=== PATIENT | female | born 1935 | race Caucasian/White ===

== ENCOUNTER 2017-11-02 18:11 | Inpatient (IN) | payer MEDICARE, OTHER ==
[2017-11-02] MEDS ORDERED: Sodium Chloride 0.9% 10 ML Syringe FLUSH PRN (18:51)
--- NOTE | 2017-11-02 18:55 | EDM.PDOC ---
ED HPI GENERAL MEDICAL PROBLEM - General Chief Complaint: General Stated Complaint: FEVER,LOW OXYGEN,BP ELEVATED Time Seen by Provider: 11/02/17 18:35 Source of Information: Reports: Patient, Family (daughter) History Limitations: Reports: No Limitations - History of Present Illness INITIAL COMMENTS - FREE TEXT/NARRATIVE: 82-year-old female presents with her daughter for evaluation and treatment of fever, cough, increased confusion and weakness. Reports that she had a temperature of 101.5 at [facility]. Reports that symptoms started today. Per her daughter states that she is not acting like herself. She reports a dry, nonproductive cough, weakness and confusion. No chest pain, shortness of breath , nausea, vomiting or diarrhea. Patient's oxygen sats were lower in the low 80s upon arrival to the ER, nursing staff placed her on oxygen. Not normally on oxygen. No influenza vaccine this season. Primary care provider is Dr. Melgoza. Daughter reports that she did have flu in August. She describes more of a gastroenteritis rather than influenza. - Related Data Allergies Allergy/AdvReac Type Severity Reaction Status Date / Time No Known Allergies Allergy Verified 11/02/17 18:26 Home Meds: Home Meds Clopidogrel [Plavix] 75 mg PO DAILY 11/02/17 [History] Donepezil [Aricept] 10 mg PO BEDTIME 11/02/17 [History] Ranitidine HCl [Zantac] 150 mg PO DAILY 11/02/17 [History] Solifenacin Succinate [Vesicare] 10 mg PO DAILY 11/02/17 [History] Social & Family History - Tobacco Use Smoking Status *Q: Never Smoker Second Hand Smoke Exposure: No - Caffeine Use Caffeine Use: Reports: Coffee - Recreational Drug Use Recreational Drug Use: No ED ROS GENERAL - Review of Systems Review Of Systems: See Below Constitutional: Reports: Fever (101.[address]), Weakness Respiratory: Denies: Shortness of Breath Cardiovascular: Denies: Chest Pain GI/Abdominal: Denies: Abdominal Pain, Nausea, Vomiting Neurological: Reports: Confusion ED EXAM, GENERAL - Physical Exam Exam: See Below Exam Limited By: No Limitations General Appearance: Alert, WD/WN, No Apparent Distress Eye Exam: Bilateral Eye: Normal Inspection Ears: Normal External Exam Ear Exam: Bilateral Ear: Other (TMs obscured by cerumen) Nose: Normal Inspection Throat/Mouth: Normal Inspection Neck: Normal Inspection Respiratory/Chest: No Respiratory Distress, Lungs Clear, Normal Breath Sounds Cardiovascular: Normal Peripheral Pulses, Regular Rate, Rhythm, No Murmur GI/Abdominal: Soft, Non-Tender Neurological: Alert, Confused Psychiatric: Normal Affect, Normal Mood Skin Exam: Warm, Dry, Normal Color EKG INTERPRETATION EKG Date: 11/02/17 Time: 20:55 Rate (Beats/Min): 90 EKG Interpretation Comments: sinus arrhythmia. unifocal PVCs. No obvious ischemia. Reviewed by myself and Dr. Portillo. Course - Vital Signs Last Recorded V/S: Last Vital Signs Temp 38.3 C H 11/02/17 21:21 Pulse 74 11/02/17 21:21 Resp 23 H 11/02/17 21:21 BP 142/87 H 11/02/17 18:21 Pulse Ox 92 L 11/02/17 21:21 - Orders/Labs/Meds Orders: Active Orders 24 hr Category Date Time Status Admission Status [Patient Status] [ADT] Routine ADT 11/02/17 22:30 Active Cardiac Monitoring [RC] . DIRECTED Care 11/02/17 18:51 Active EKG 12 Lead [EKG Documentation Completion] [RC] STAT Care 11/02/17 20:41 Active Oxygen Therapy [RC] ASDIRECTED Care 11/02/17 18:51 Active Peripheral IV Care [RC] . DIRECTED Care 11/02/17 18:52 Active Chest 2V [CR] Stat Exams 11/02/17 18:51 Taken CULTURE BLOOD [BC] Stat Lab 11/02/17 19:10 Received CULTURE BLOOD [BC] Stat Lab 11/02/17 19:18 Received CULTURE URINE [RM] Stat Lab 11/02/17 19:31 Received Sodium Chloride 0.9% [Normal Saline] 1,000 ml Med 11/02/17 19:58 Active IV ONETIME Sodium Chloride 0.9% [Saline Flush] Med 11/02/17 18:51 Active 10 ml FLUSH ASDIRECTED PRN Blood Culture x2 Reflex Set [OM.PC] Stat Oth 11/02/17 18:52 Ordered Peripheral IV Insertion Adult [OM.PC] Routine Oth 11/02/17 18:51 Ordered Medication Orders Sodium Chloride (Normal Saline) 1,000 mls @ 125 mls/hr IV ONETIME ONE Stop: 11/03/17 03:57 Last Admin: 11/02/17 20:21 Dose: 125 mls/hr Sodium Chloride (Saline Flush) 10 ml FLUSH ASDIRECTED PRN PRN Reason: Keep Vein Open Last Admin: 11/02/17 19:43 Dose: 10 ml Labs: Laboratory Tests 11/02/17 11/02/17 11/02/17 Range/Units 19:10 19:10 19:10 WBC 12.74 H (3.98-10.04) K/mm3 RBC 4.06 (3.98-5.22) M/mm3 Hgb 12.5 (11.2-15.7) gm/L Hct 38.6 (34.1-44.9) % MCV 95.1 H (79.4-94.8) fl MCH 30.8 (25.6-32.2) pg MCHC 32.4 (32.2-35.5) g/dl RDW Std Deviation 50.3 H (36.4-46.3) fL Plt Count 349 (182-369) K/mm3 MPV 11.3 (9.4-12.3) fl Neutrophils % (Manual) 82 H (40-60) % Band Neutrophils % 1 (0-10) % Lymphocytes % (Manual) 12 L (20-40) % Atypical Lymphs % 0 % Monocytes % (Manual) 5 (2-10) % Eosinophils % (Manual) 0 L (0.7-5.8) % Basophils % (Manual) 0 L (0.1-1.2) Platelet Estimate Adequate RBC Morph Comment Normal Sodium 136 (136-145) mEq/L Potassium 4.1 (3.5-5.1) mEq/L Chloride 101 (98-107) mEq/L Carbon Dioxide 25 (21-32) mEq/L Anion Gap 14.1 (5-15) BUN 17 (7-18) mg/dL Creatinine 1.3 H (0.55-1.02) mg/dL Est Cr Clr Drug Dosing 32.50 mL/min Estimated GFR (MDRD) 39 (>60) mL/min BUN/Creatinine Ratio 13.1 L (14-18) Glucose 117 H (83-115) mg/dL Lactic Acid 1.1 (0.4-2.0) mmol/L Calcium 8.2 L (8.5-10.1) mg/dL Total Bilirubin 0.6 (0.2-1.0) mg/dL AST 18 (15-37) U/L ALT 12 L (14-59) U/L Alkaline Phosphatase 73 (46-116) U/L C-Reactive Protein 5.1 H* (<1.0) mg/dL Total Protein 7.0 (6.4-8.2) g/dl Albumin 3.2 L (3.4-5.0) g/dl Globulin 3.8 gm/dL Albumin/Globulin Ratio 0.8 L (1-2) Urine Color (Yellow) Urine Appearance (Clear) Urine pH (5.0-8.0) Ur Specific [place] (1.005-1.030) Urine Protein (Negative) Urine Glucose (UA) (Negative) Urine Ketones (Negative) Urine Occult Blood (Negative) Urine Nitrite (Negative) Urine Bilirubin (Negative) Urine Urobilinogen (0.2-1.0) Ur Leukocyte Esterase (Negative) Urine RBC (0-5) /hpf Urine WBC (0-5) /hpf Ur Epithelial Cells (0-5) /hpf Urine Bacteria (FEW) /hpf Urine Mucus (FEW) /hpf 11/02/17 Range/Units 19:31 WBC (3.98-10.04) K/mm3 RBC (3.98-5.22) M/mm3 Hgb (11.2-15.7) gm/L Hct (34.1-44.9) % MCV (79.4-94.8) fl MCH (25.6-32.2) pg MCHC (32.2-35.5) g/dl RDW Std Deviation (36.4-46.3) fL Plt Count (182-369) K/mm3 MPV (9.4-12.3) fl Neutrophils % (Manual) (40-60) % Band Neutrophils % (0-10) % Lymphocytes % (Manual) (20-40) % Atypical Lymphs % % Monocytes % (Manual) (2-10) % Eosinophils % (Manual) (0.7-5.8) % Basophils % (Manual) (0.1-1.2) Platelet Estimate RBC Morph Comment Sodium (136-145) mEq/L Potassium (3.5-5.1) mEq/L Chloride (98-107) mEq/L Carbon Dioxide (21-32) mEq/L Anion Gap (5-15) BUN (7-18) mg/dL Creatinine (0.55-1.02) mg/dL Est Cr Clr Drug Dosing mL/min Estimated GFR (MDRD) (>60) mL/min BUN/Creatinine Ratio (14-18) Glucose (83-115) mg/dL Lactic Acid (0.4-2.0) mmol/L Calcium (8.5-10.1) mg/dL Total Bilirubin (0.2-1.0) mg/dL AST (15-37) U/L ALT (14-59) U/L Alkaline Phosphatase (46-116) U/L C-Reactive Protein (<1.0) mg/dL Total Protein (6.4-8.2) g/dl Albumin (3.4-5.0) g/dl Globulin gm/dL Albumin/Globulin Ratio (1-2) Urine Color Light yellow (Yellow) Urine Appearance Cloudy H (Clear) Urine pH 6.5 (5.0-8.0) Ur Specific [place] 1.020 (1.005-1.030) Urine Protein 1+ H (Negative) Urine Glucose (UA) Negative (Negative) Urine Ketones Negative (Negative) Urine Occult Blood Negative (Negative) Urine Nitrite Positive H (Negative) Urine Bilirubin Negative (Negative) Urine Urobilinogen 0.2 (0.2-1.0) Ur Leukocyte Esterase 3+ H (Negative) Urine RBC 0-5 (0-5) /hpf Urine WBC 50-75 H (0-5) /hpf Ur Epithelial Cells 5-10 H (0-5) /hpf Urine Bacteria Many H (FEW) /hpf Urine Mucus Not seen (FEW) /hpf Meds: Medications Generic Name Dose Route Start Last Admin Trade Name Freq PRN Reason Stop Dose Admin Sodium Chloride 1,000 mls @ 125 mls/hr 11/02/17 19:58 11/02/17 20:21 Normal Saline IV 11/03/17 03:57 125 mls/hr ONETIME ONE Administration Sodium Chloride 10 ml 11/02/17 18:51 11/02/17 19:43 Saline Flush FLUSH 10 ml ASDIRECTED PRN Administration Keep Vein Open Discontinued Medications Generic Name Dose Route Start Last Admin Trade Name Freq PRN Reason Stop Dose Admin Levofloxacin/Dextrose 750 mg/ 150 mls @ 100 mls/hr 11/02/17 20:00 11/02/17 20 :21 Premix IV 11/02/17 21:29 100 mls/hr ONETIME ONE Administration - Radiology Interpretation Free Text/Narrative:: chest xray reviewed by myself and Dr. Sanon, early pneumonia right middle lobe - Re-Assessments/Exams Free Text/Narrative Re-Assessment/Exam: 11/02/17 20:00 Labs are returning. Concern for pneumonia and urinary tract infection. Blood cultures have been obtained. Will start IV Levaquin to cover for urinary tract infection and pneumonia. 11/02/17 20:45 I Feel the patient needs to be admitted for her hypoxia, pneumonia and urinary tract infection. I checked on the patient, discussed this with the patient and her daughter. They are agreeable with this. I appreciated that she seemed to have an irregular rhythm. EKG ordered. She was in normal sinus rhythm upon arrival. No history of A. fib. 11/02/17 21:10 Influenza returned negative. Case discussed with Dr. Mendez, hospitalist on-call. Agrees to the admission. Departure - Departure Time of Disposition: 21:15 Disposition: Admitted As Inpatient 64 Condition: Poor Clinical Impression: UTI, Urinary tract infectious disease, Pneumonia, Hypoxia - Discharge Information Referrals: Gucci Mir MD [Primary Care Provider] - Forms: ED Department Discharge Additional Instructions: Patient admitted to [facility] [place] with telemetry under Dr. Mendez for urinary tract infection, pneumonia and hypoxia. - My Orders Last 24 Hours: My Active Orders 11/02/17 18:51 Cardiac Monitoring [RC] . DIRECTED Oxygen Therapy [RC] ASDIRECTED Chest 2V [CR] Stat Sodium Chloride 0.9% [Saline Flush] 10 ml FLUSH ASDIRECTED PRN Peripheral IV Insertion Adult [OM.PC] Routine 11/02/17 18:52 Peripheral IV Care [RC] . DIRECTED Blood Culture x2 Reflex Set [OM.PC] Stat 11/02/17 19:10 CULTURE BLOOD [BC] Stat 11/02/17 19:18 CULTURE BLOOD [BC] Stat 11/02/17 19:31 CULTURE URINE [RM] Stat 11/02/17 19:58 Sodium Chloride 0.9% [Normal Saline] 1,000 ml IV ONETIME 11/02/17 20:41 EKG 12 Lead [EKG Documentation Completion] [RC] STAT 11/02/17 22:30 Admission Status [Patient Status] [ADT] Routine - Assessment/Plan Last 24 Hours: My Active Orders 11/02/17 18:51 Cardiac Monitoring [RC] . DIRECTED Oxygen Therapy [RC] ASDIRECTED Chest 2V [CR] Stat Sodium Chloride 0.9% [Saline Flush] 10 ml FLUSH ASDIRECTED PRN Peripheral IV Insertion Adult [OM.PC] Routine 11/02/17 18:52 Peripheral IV Care [RC] . DIRECTED Blood Culture x2 Reflex Set [OM.PC] Stat 11/02/17 19:10 CULTURE BLOOD [BC] Stat 11/02/17 19:18 CULTURE BLOOD [BC] Stat 11/02/17 19:31 CULTURE URINE [RM] Stat 11/02/17 19:58 Sodium Chloride 0.9% [Normal Saline] 1,000 ml IV ONETIME 11/02/17 20:41 EKG 12 Lead [EKG Documentation Completion] [RC] STAT 11/02/17 22:30 Admission Status [Patient Status] [ADT] Routine
[2017-11-02] MEDS ORDERED: Sodium Chloride 0.9% 1,000 ML IV ONE (19:58)
[2017-11-02] MEDS ORDERED: Levofloxacin/Dextrose 5%-Water 750 MG in Premix Bag 1 BAG IV ONE (20:00)
[2017-11-02] MEDS ORDERED: Acetaminophen/HYDROcodone 325-5 MG Tab PO PRN (22:41)
[2017-11-02] MEDS ORDERED: HYDROmorphone 0.5 MG/0.5 ML SYRINGE IVPUSH PRN (22:41)
[2017-11-02] MEDS ORDERED: Acetaminophen 325 MG Tab PO PRN (22:41)
[2017-11-02] MEDS ORDERED: Promethazine 6.25 MG in Sodium Chloride 0.9% 50 ML IV PRN (22:41)
[2017-11-02] MEDS ORDERED: Bisacodyl 5 MG Tab PO PRN (22:41)
[2017-11-02] MEDS ORDERED: LORazepam 2 MG/ML MDV IV PRN (22:41)
[2017-11-02] MEDS ORDERED: Albuterol/Ipratropium 3.0-0.5 MG/3 ML Neb Soln NEB PRN (22:41)
[2017-11-02] MEDS ORDERED: Polyethylene Glycol 3350 Powder 17 GM Packet PO PRN (22:41)
[2017-11-02] MEDS ORDERED: Temazepam 7.5 MG Cap PO PRN (22:41)
[2017-11-02] MEDS ORDERED: Ondansetron 4 MG/2 ML SDV IV PRN (22:41)
[2017-11-02] MEDS ORDERED: Docusate Sodium 100 MG Cap PO PRN (22:41)
[2017-11-02] MEDS ORDERED: Metoprolol Tartrate 5 MG/5 ML SDV IVPUSH PRN (22:46)
[2017-11-02] MEDS ORDERED: hydrALAZINE 20 MG/ML SDV IVPUSH PRN (22:46)
[2017-11-02] MEDS ORDERED: LORazepam 2 MG/ML MDV IVPUSH PRN (22:46)
[2017-11-02] MEDS ORDERED: guaiFENesin/Dextromethorphan 100-10 MG/5 ML Soln 5 ML Cup PO PRN (23:59)
--- NOTE | 2017-11-03 00:05 | PCM.HP ---
H&P History of Present Illness - General Date of Service: 11/02/17 Admit Problem/Dx: UTI and PNA Source of Information: Patient, Family, Old Records, Provider, RN Notes Reviewed History Limitations: Reports: Other (Memory Impairment) - History of Present Illness Initial Comments - Free Text/Narative: This is an 82 yo elderly white female with past medical hx/o ? CAD on Plavix, Early Dementia, GERD/Pyrosis, and OAB on Vesicare who comes in to ED for evaluation of subjective fever of 101.5 associated with dry non-productive cough , generalized weakness and increased confusion. She denies any chest pain or shortness of breath. No report of GI issues. Patient carries a hx/o recent influenza illness back in August. She received anti-viral treatment and her symptoms improved immediately. On presentation to ED she was found sating in the low 80s. Her initial work up shows a CBC remarkable for WBC of 12.74, MCV of 95.1, RDW of 15.2%, neutrophils of 82%, and 12% of lymphocytes. Her chemistry is remarkable for creatinine of 1.3, glucose of 117, calcium of 8.2, ALT of 12, CRP of 5.1, and albumin of 3.2. UA is highly suggestive of urinary tract infection; positive for nitrite, 3+ leukocyte esterase, and many urine bacteria. Chest x-ray shows right middle lobe infiltrate. Patient is being admitted for medical treatment of right middle lobe pneumonia and urinary tract infection. She is full code for now. - Related Data Allergies/Adverse Reactions: Allergies Allergy/AdvReac Type Severity Reaction Status Date / Time No Known Allergies Allergy Verified 11/03/17 02:25 Home Medications: Home Meds Clopidogrel [Plavix] 75 mg PO DAILY 11/02/17 [History] Donepezil [Aricept] 10 mg PO BEDTIME 11/02/17 [History] Ranitidine HCl [Zantac] 150 mg PO DAILY 11/02/17 [History] Solifenacin Succinate [Vesicare] 10 mg PO DAILY 11/02/17 [History] Social & Family History - Tobacco Use Smoking Status *Q: Never Smoker Second Hand Smoke Exposure: No - Caffeine Use Caffeine Use: Reports: Coffee - Recreational Drug Use Recreational Drug Use: No H&P Review of Systems - Review of Systems: Review Of Systems: See Below General: Reports: Fever, Weakness. Denies: Chills, Malaise, Fatigue HEENT: Reports: No Symptoms. Denies: Sore Throat Pulmonary: Reports: Shortness of Breath. Denies: Pleuritic Chest Pain, Cough Cardiovascular: Denies: Chest Pain Gastrointestinal: Denies: Abdominal Pain, Nausea, Vomiting Genitourinary: Reports: No Symptoms Skin: Reports: No Symptoms Psychiatric: Reports: Confusion (but with underlying dementia; not good with short term memory per daughter). Denies: Depression, Anxiety, Hallucinations Neurological: Denies: Confusion, Difficulty Walking, Weakness, Gait Disturbance Hematologic/Lymphatic: Reports: No Symptoms Immunologic: Reports: No Symptoms Exam - Exam Exam: See Below - Vital Signs Vital Signs: Last Vital Signs Temp 38.2 C H 11/02/17 23:28 Pulse 66 11/02/17 22:00 Resp 32 H 11/02/17 22:00 BP 119/74 11/02/17 21:32 Pulse Ox 98 11/02/17 22:00 Weight: 81.647 kg - Exam General: Alert, Cooperative. No: Mild Distress HEENT: Conjunctiva Clear, EACs Clear, EOMI, Hearing Intact, Nares Patent, Normal Nasal Septum, Pupils Equal, Pupils Reactive, Other (very dry mouth and tongue). No: Mucosa Moist & Pierre, Posterior Pharynx Clear Neck: Supple, Trachea Midline Lungs: Clear to Auscultation, Normal Respiratory Effort Cardiovascular: Regular Rate, Regular Rhythm GI/Abdominal Exam: Normal Bowel Sounds, Soft, Non-Tender, No Organomegaly, No Distention, No Abnormal Bruit (Female) Exam: Deferred Rectal (Female) Exam: Deferred Back Exam: Normal Inspection, Decreased Range of Motion Extremities: Normal Inspection, Normal Range of Motion, Non-Tender, No Pedal Edema, Normal Capillary Refill Peripheral Pulses: 2+: Dorsalis Pedis (L), Dorsalis Pedis (R) Skin: Warm, Dry, Intact Neuro Extensive - Mental Status: Oriented x3, Normal Cognition, Memory Intact Neuro Extensive - Motor, Sensory, Reflexes: CN II-XII Intact, Normal Gait Psychiatric: Alert, Normal Affect, Normal Mood - Patient Data Result Diagrams: 11/03/17 06:00 11/03/17 06:00 *Q Meaningful Use (ADM) - VTE *Q VTE Criteria *Q: - Stroke *Q Stroke Criteria *Q: - AMI *Q AMI Criteria *Q: Problem List Initiated/Reviewed/Updated: Yes Orders Last 24hrs: Active Orders 24 hr Category Date Time Status Height and Weight [RC] DAILY Care 11/02/17 22:41 Active Intake and Output [RC] QSHIFT Care 11/02/17 22:41 Active Oxygen Therapy [RC] PRN Care 11/02/17 22:41 Active RT Aerosol Therapy [RC] ASDIRECTED Care 11/02/17 22:43 Active Up With Assistance [RC] ASDIRECTED Care 11/02/17 22:41 Active Up ad Edith [RC] ASDIRECTED Care 11/02/17 22:41 Active VTE/DVT Education [RC] PER UNIT ROUTINE Care 11/02/17 22:41 Active Vital Signs [RC] Q4H Care 11/02/17 22:41 Active Consult to Case Management [CONS] Routine Cons 11/02/17 22:44 Active Consult to Delicatessen Department Manager [CONS] Routine Cons 11/02/17 22:44 Active Consult to Spiritual Care [CONS] Routine Cons 11/02/17 22:44 Active OT Evaluation and Treatment [CONS] Routine Cons 11/02/17 22:44 Active PT Evaluation and Treatment [CONS] Routine Cons 11/02/17 22:44 Active Respiratory Care Assess and Treatment [CONS] Routine Cons 11/02/17 22:44 Active Regular Diet [DIET] Diet 11/03/17 Breakfast Active BASIC METABOLIC PANEL,BMP [CHEM] AM Lab 11/03/17 05:11 Ordered BASIC METABOLIC PANEL,BMP [CHEM] AM Lab 11/04/17 05:11 Ordered BASIC METABOLIC PANEL,BMP [CHEM] AM Lab 11/05/17 05:11 Ordered BASIC METABOLIC PANEL,BMP [CHEM] AM Lab 11/06/17 05:11 Ordered BASIC METABOLIC PANEL,BMP [CHEM] AM Lab 11/07/17 05:11 Ordered C-REACTIVE PROTEIN [CHEM] AM Lab 11/03/17 05:11 Ordered C-REACTIVE PROTEIN [CHEM] AM Lab 11/04/17 05:11 Ordered C-REACTIVE PROTEIN [CHEM] AM Lab 11/05/17 05:11 Ordered C-REACTIVE PROTEIN [CHEM] AM Lab 11/06/17 05:11 Ordered C-REACTIVE PROTEIN [CHEM] AM Lab 11/07/17 05:11 Ordered CBC WITH AUTO DIFF [HEME] AM Lab 11/03/17 05:11 Ordered CBC WITH AUTO DIFF [HEME] AM Lab 11/04/17 05:11 Ordered CBC WITH AUTO DIFF [HEME] AM Lab 11/05/17 05:11 Ordered CBC WITH AUTO DIFF [HEME] AM Lab 11/06/17 05:11 Ordered CBC WITH AUTO DIFF [HEME] AM Lab 11/07/17 05:11 Ordered MAGNESIUM [CHEM] AM Lab 11/03/17 05:11 Ordered MAGNESIUM [CHEM] AM Lab 11/04/17 05:11 Ordered MAGNESIUM [CHEM] AM Lab 11/05/17 05:11 Ordered MAGNESIUM [CHEM] AM Lab 11/06/17 05:11 Ordered MAGNESIUM [CHEM] AM Lab 11/07/17 05:11 Ordered Acetaminophen [Tylenol] Med 11/02/17 22:41 Active 650 mg PO Q4H PRN Acetaminophen/HYDROcodone [[place] 325-5 MG] Med 11/02/17 22:41 Active 1 tab PO Q4H PRN Albuterol/Ipratropium [DuoNeb 3.0-0.5 MG/3 ML] Med 11/02/17 22:41 Active 3 ml NEB Q4H PRN Azithromycin [Zithromax] 500 mg Med 11/03/17 09:00 Active Sodium Chloride 0.9% [Normal Saline] 250 ml IV Q24H Bisacodyl [Dulcolax] Med 11/02/17 22:41 Active 5 mg PO DAILY PRN Clopidogrel [Plavix] Med 11/03/17 09:00 Active 75 mg PO DAILY Docusate Sodium [Colace] Med 11/02/17 22:41 Active 100 mg PO BID PRN Docusate Sodium/Sennosides [Senna Plus] Med 11/02/17 22:41 Active 1 tab PO BID PRN Donepezil [Aricept] Med 11/03/17 21:00 Active 10 mg PO BEDTIME Famotidine [Pepcid] Med 11/03/17 21:00 Active 20 mg PO BEDTIME HYDROmorphone [Dilaudid] Med 11/02/17 22:41 Active 0.25 mg IVPUSH Q2H PRN LORazepam [Ativan] Med 11/02/17 22:41 Active 0.25 mg IV Q6H PRN LORazepam [Ativan] Med 11/02/17 22:46 Active 2 mg IVPUSH Q4H PRN Magnesium Rep Pharmacy to Dose [Pharmacy to Dose - Med 11/02/17 23:00 Pending Magnesium Replacement] 1 dose .XX ASDIRECTED Metoprolol Tartrate [Lopressor] Med 11/02/17 22:46 Active 5 mg IVPUSH Q4H PRN Ondansetron [Zofran] Med 11/02/17 22:41 Active 4 mg IV Q6H PRN Polyethylene Glycol 3350 [MiraLAX] Med 11/02/17 22:41 Active 17 gm PO DAILY PRN Potassium Rep Pharmacy to Dose [Pharmacy to Dose - Med 11/02/17 23:00 Pending Potassium Replacement] 1 dose .XX ASDIRECTED Promethazine [Phenergan] 6.25 mg Med 11/02/17 22:41 Active Sodium Chloride 0.9% [Normal Saline] 50 ml IV Q6H Saccharomyces Boulardii [Florastor] Med 11/03/17 09:00 Active 500 mg PO DAILY Temazepam [Restoril] Med 11/02/17 22:41 Active 7.5 mg PO BEDTIME PRN Trospium [Sanctura] Med 11/03/17 06:00 Active 20 mg PO BIDAC cefTRIAXone [Rocephin] 1 gm Med 11/03/17 09:00 Active Sodium Chloride 0.9% [Normal Saline] 100 ml IV Q24H hydrALAZINE [Apresoline] Med 11/02/17 22:46 Active 10 mg IVPUSH Q4H PRN Medication Orders Acetaminophen (Tylenol) 650 mg PO Q4H PRN PRN Reason: Pain (Mild 1-3)/fever Last Admin: 11/02/17 23:28 Dose: 650 mg Hydrocodone Bitart/Acetaminophen ([place] 325-5 Mg) 1 tab PO Q4H PRN PRN Reason: Pain (moderate 4-6) Albuterol/Ipratropium (Duoneb 3.0-0.5 Mg/3 Ml) 3 ml NEB Q4H PRN PRN Reason: Shortness Of Breath/wheezing Bisacodyl (Dulcolax) 5 mg PO DAILY PRN PRN Reason: Constipation Clopidogrel Bisulfate (Plavix) 75 mg PO DAILY SONAM Docusate Sodium (Colace) 100 mg PO BID PRN PRN Reason: Constipation Donepezil HCl (Aricept) 10 mg PO BEDTIME SONAM Famotidine (Pepcid) 20 mg PO BEDTIME SONAM Hydralazine HCl (Apresoline) 10 mg IVPUSH Q4H PRN PRN Reason: Hypertension Hydromorphone HCl (Dilaudid) 0.25 mg IVPUSH Q2H PRN PRN Reason: Pain (severe 7-10) Sodium Chloride (Normal Saline) 1,000 mls @ 125 mls/hr IV ONETIME ONE Stop: 11/03/17 03:57 Last Admin: 11/02/17 20:21 Dose: 125 mls/hr Promethazine HCl 6.25 mg/ (Sodium Chloride) 50.25 mls @ 100 mls/hr IV Q6H PRN PRN Reason: Nausea/Vomiting Azithromycin 500 mg/ Sodium (Chloride) 250 mls @ 250 mls/hr IV Q24H SONAM Ceftriaxone Sodium 1 gm/ (Sodium Chloride) 100 mls @ 200 mls/hr IV Q24H [facility] Lorazepam (Ativan) 0.25 mg IV Q6H PRN PRN Reason: Anxiety Lorazepam (Ativan) 2 mg IVPUSH Q4H PRN PRN Reason: Seizures Magnesium Sulfate (Pharmacy To Dose - Magnesium Replacement) 1 dose .XX ASDIRECTED [facility] Metoprolol Tartrate (Lopressor) 5 mg IVPUSH Q4H PRN PRN Reason: Tachycardia Ondansetron HCl (Zofran) 4 mg IV Q6H PRN PRN Reason: Nausea/Vomiting Polyethylene Glycol (Miralax) 17 gm PO DAILY PRN PRN Reason: Constipation Potassium Chloride (Pharmacy To Dose - Potassium Replacement) 1 dose .XX ASDIRECTED [facility] Saccharomyces Boulardii (Florastor) 500 mg PO DAILY [facility] Senna/Docusate Sodium (Senna Plus) 1 tab PO BID PRN PRN Reason: Constipation Sodium Chloride (Saline Flush) 10 ml FLUSH ASDIRECTED PRN PRN Reason: Keep Vein Open Last Admin: 11/02/17 19:43 Dose: 10 ml Temazepam (Restoril) 7.5 mg PO BEDTIME PRN PRN Reason: Sleep Trospium (Sanctura) 20 mg PO BIDAC [facility] Assessment/Plan Comment:: Assessment/Plan: Acute: Right Sided PNA - Likely Aspiration - Risk factors: Dementia and GERD - CXR shows right middle lobe infiltrate - Received IV 750 mg Levaquin in ED x1 - Will switch to IV Azithromycin/Rocephin in AM - Influenza negative - Sputum Cx, Mycoplasma and Strep pneumoniae Ag tests - IS as directed - H2B for preventive reflux - PRN Decongestant/Expectorant - Serial CXR as needed UTI - UA is suggestive of UTI - Cx is pending - Risk factor: on Vesicare ---> urinary retention - Received Levaquin in ED - She will be on Rocephin in AM Leukocytosis - 2/2 Above - WBC 12.74 - CRP is 5.1 - Monitor Chronic: ? CAD on Plavix Dementia GERD/Pyrosis OAB on Vesicare Plan: Admit to the floor Resume Home Meds Routine AM Labs DVT/GI PPx: SCDs and H2B PT/OT consult SW/CM for d/c planning Code status: Full for now; daughter will bring in her living will tomorrow
--- NOTE | 2017-11-03 06:03 | CR ---
Chest: Two views of the chest were obtained. Comparison: No previous study. Focal density is noted within the right perihilar region within the right midlung. Lungs otherwise are clear. Heart size and mediastinum are normal. Degenerative spurring is noted within the spine. Impression: 1. Focal density within the right midlung most likely representing early area of pneumonia. 2. Other incidental findings. Diagnostic code #3
[2017-11-03] MEDS: Trospium 20 MG Tab PO SCH ×2 (06:59→17:00)
[2017-11-03] MEDS ORDERED: Non-Formulary Medication 1 Each (Solifenacin Succinate [Vesicare] 10 MG) PO SCH (09:00)
[2017-11-03] MEDS ORDERED: cefTRIAXone 1 GM in Sodium Chloride 0.9% 100 ML IV SCH (09:00)
[2017-11-03] MEDS ORDERED: Non-Formulary Medication 1 Each (Ranitidine Hcl 150 MG) PO SCH (09:00)
[2017-11-03] MEDS: Saccharomyces Boulardii (Probiotic) 250 MG Cap PO SCH ×2 (10:01→20:35)
[2017-11-03] MEDS: Clopidogrel 75 MG Tab PO SCH (10:01)
[2017-11-03] MEDS: cefTRIAXone 1 GM in Sodium Chloride 0.9% 100 ML IV SCH (10:04)
[2017-11-03] MEDS: Azithromycin 500 MG in Sodium Chloride 0.9% 250 ML IV SCH (10:05)
--- NOTE | 2017-11-03 16:34 | PCM.PN ---
- General Info Date of Service: 11/03/17 Admission Dx/Problem (Free Text): UTI and PNA Subjective Update: Follow Up Functional Status: Reports: Pain Controlled, Tolerating Diet, Ambulating, Urinating. Denies: New Symptoms - Review of Systems General: Denies: Fever, Weakness, Fatigue, Malaise, Chills HEENT: Reports: No Symptoms Pulmonary: Denies: Shortness of Breath Cardiovascular: Denies: Chest Pain, Palpitations, Dyspnea on Exertion Gastrointestinal: Reports: Flatus. Denies: Abdominal Pain, Constipation, Diarrhea, Nausea, Vomiting Genitourinary: Reports: No Symptoms Musculoskeletal: Reports: No Symptoms Skin: Denies: Cyanosis, Mottled, Pallor, Diaphoresis, Rash Neurological: Denies: Confusion, Syncope, Difficulty Walking, Weakness, Gait Disturbance Psychiatric: Denies: Depression, Anxiety, Agitation, Hallucinations Systems Review Comment:: No significant overnight or acute issues. She rested well last night. She feels pretty good this morning. She has no new complaints. - Patient Data Vitals - Most Recent: Last Vital Signs Temp 36.9 C 11/03/17 11:19 Pulse 73 11/03/17 11:19 Resp 20 11/03/17 11:19 BP 104/74 11/03/17 11:19 Pulse Ox 94 L 11/03/17 11:19 Weight - Most Recent: 81.647 kg I&O - Last 24 Hours: Intake & Output 11/03/17 11/03/17 11/03/17 06:59 14:59 22:59 Intake Total 1100 240 350 Output Total 925 Balance 175 240 350 Lab Results Last 24 Hours: Laboratory Results - last 24 hr 11/03/17 11/03/17 11/03/17 Range/Units 05:50 06:00 06:00 WBC 10.91 H (3.98-10.04) K/mm3 RBC 4.21 (3.98-5.22) M/mm3 Hgb 13.0 (11.2-15.7) gm/L Hct 40.1 (34.1-44.9) % MCV 95.2 H (79.4-94.8) fl MCH 30.9 (25.6-32.2) pg MCHC 32.4 (32.2-35.5) g/dl RDW Std Deviation 51.4 H (36.4-46.3) fL Plt Count 309 (182-369) K/mm3 MPV 11.5 (9.4-12.3) fl Neut % (Auto) 75.9 H (34.0-71.1) % Lymph % (Auto) 12.2 L (19.3-51.7) % [place] % (Auto) 10.4 (4.7-12.5) % Eos % (Auto) 1.1 (0.7-5.8) Baso % (Auto) 0.4 (0.1-1.2) % Neut # (Auto) 8.29 H (1.56-6.13) K/mm3 Lymph # (Auto) 1.33 (1.18-3.74) K/mm3 [place] # (Auto) 1.13 H (0.24-0.36) K/mm3 Eos # (Auto) 0.12 (0.04-0.36) K/mm3 Baso # (Auto) 0.04 (0.01-0.08) K/mm3 Sodium 140 (136-145) mEq/L Potassium 4.3 (3.5-5.1) mEq/L Chloride 106 (98-107) mEq/L Carbon Dioxide 26 (21-32) mEq/L Anion Gap 12.3 (5-15) BUN 15 (7-18) mg/dL Creatinine 1.2 H (0.55-1.02) mg/dL Est Cr Clr Drug Dosing 35.20 mL/min Estimated GFR (MDRD) 43 (>60) mL/min BUN/Creatinine Ratio 12.5 L (14-18) Glucose 102 (83-115) mg/dL Calcium 8.1 L (8.5-10.1) mg/dL Magnesium 1.9 (1.8-2.4) mg/dl C-Reactive Protein 7.9 H* (<1.0) mg/dL MRSA (PCR) Negative Med Orders - Current: Current Medications Acetaminophen (Tylenol) 650 mg PO Q4H PRN PRN Reason: Pain (Mild 1-3)/fever Last Admin: 11/02/17 23:28 Dose: 650 mg Hydrocodone Bitart/Acetaminophen ([place] 325-5 Mg) 1 tab PO Q4H PRN PRN Reason: Pain (moderate 4-6) Albuterol/Ipratropium (Duoneb 3.0-0.5 Mg/3 Ml) 3 ml NEB Q4H PRN PRN Reason: Shortness Of Breath/wheezing Bisacodyl (Dulcolax) 5 mg PO DAILY PRN PRN Reason: Constipation Clopidogrel Bisulfate (Plavix) 75 mg PO DAILY [facility] Last Admin: 11/03/17 10:01 Dose: 75 mg Docusate Sodium (Colace) 100 mg PO BID PRN PRN Reason: Constipation Donepezil HCl (Aricept) 10 mg PO BEDTIME [facility] Famotidine (Pepcid) 20 mg PO BEDTIME [facility] Guaifenesin/Phenylephrine HCl (Robitussin Dm) 5 ml PO Q4H PRN PRN Reason: Cough Hydralazine HCl (Apresoline) 10 mg IVPUSH Q4H PRN PRN Reason: Hypertension Hydromorphone HCl (Dilaudid) 0.25 mg IVPUSH Q2H PRN PRN Reason: Pain (severe 7-10) Promethazine HCl 6.25 mg/ (Sodium Chloride) 50.25 mls @ 100 mls/hr IV Q6H PRN PRN Reason: Nausea/Vomiting Azithromycin 500 mg/ Sodium (Chloride) 250 mls @ 250 mls/hr IV Q24H [facility] Last Admin: 11/03/17 10:05 Dose: 250 mls/hr Ceftriaxone Sodium 1 gm/ (Sodium Chloride) 100 mls @ 200 mls/hr IV Q24H [facility] Last Admin: 11/03/17 10:04 Dose: 200 mls/hr Lorazepam (Ativan) 0.25 mg IV Q6H PRN PRN Reason: Anxiety Lorazepam (Ativan) 2 mg IVPUSH Q4H PRN PRN Reason: Seizures Magnesium Sulfate (Pharmacy To Dose - Magnesium Replacement) 1 dose .XX ASDIRECTED [facility] Metoprolol Tartrate (Lopressor) 5 mg IVPUSH Q4H PRN PRN Reason: Tachycardia Ondansetron HCl (Zofran) 4 mg IV Q6H PRN PRN Reason: Nausea/Vomiting Polyethylene Glycol (Miralax) 17 gm PO DAILY PRN PRN Reason: Constipation Potassium Chloride (Pharmacy To Dose - Potassium Replacement) 1 dose .XX ASDIRECTED [facility] Saccharomyces Boulardii (Florastor) 250 mg PO BID [facility] Last Admin: 11/03/17 10:01 Dose: 250 mg Senna/Docusate Sodium (Senna Plus) 1 tab PO BID PRN PRN Reason: Constipation Sodium Chloride (Saline Flush) 10 ml FLUSH ASDIRECTED PRN PRN Reason: Keep Vein Open Last Admin: 11/02/17 19:43 Dose: 10 ml Temazepam (Restoril) 7.5 mg PO BEDTIME PRN PRN Reason: Sleep Trospium (Sanctura) 20 mg PO BIDAC [facility] Last Admin: 11/03/17 06:59 Dose: Not Given Discontinued Medications Sodium Chloride (Normal Saline) 1,000 mls @ 125 mls/hr IV ONETIME ONE Stop: 11/03/17 03:57 Last Admin: 11/02/17 20:21 Dose: 125 mls/hr Levofloxacin/Dextrose 750 mg/ (Premix) 150 mls @ 100 mls/hr IV ONETIME ONE Stop: 11/02/17 21:29 Last Admin: 11/02/17 20:21 Dose: 100 mls/hr - Exam General: Alert, Cooperative, No Acute Distress HEENT: Pupils Equal, Pupils Reactive, EOMI, Mucous Membr. Moist/[place] Neck: Supple, Trachea Midline, No JVD Lungs: Normal Respiratory Effort, Decreased Breath Sounds Cardiovascular: Regular Rate, Regular Rhythm GI/Abdominal Exam: Normal Bowel Sounds, Soft, Non-Tender, No Organomegaly, No Distention, No Abnormal Bruit, No Mass (Female) Exam: Deferred Back Exam: Normal Inspection, Decreased Range of Motion Extremities: Normal Inspection, Normal Range of Motion, Non-Tender, No Pedal Edema, Normal Capillary Refill Peripheral Pulses: 2+: Dorsalis Pedis (L), Dorsalis Pedis (R) Skin: Warm, Dry, Intact Neurological: No New Focal Deficit Psy/Mental Status: Alert, Normal Affect, Normal Mood - Problem List Review Problem List Initiated/Reviewed/Updated: Yes - My Orders Last 24 Hours: My Active Orders 11/02/17 19:31 STREP PNEUMONIAE ANTIGEN [MREF] Stat 11/02/17 22:41 Height and Weight [RC] 04 Intake and Output [RC] 04,16 Oxygen Therapy [RC] PRN Up With Assistance [RC] ASDIRECTED Up ad Edith [RC] ASDIRECTED VTE/DVT Education [RC] QSHIFT Vital Signs [RC] Q4HR Acetaminophen [Tylenol] 650 mg PO Q4H PRN Acetaminophen/HYDROcodone [[place] 325-5 MG] 1 tab PO Q4H PRN Albuterol/Ipratropium [DuoNeb 3.0-0.5 MG/3 ML] 3 ml NEB Q4H PRN Bisacodyl [Dulcolax] 5 mg PO DAILY PRN Docusate Sodium [Colace] 100 mg PO BID PRN Docusate Sodium/Sennosides [Senna Plus] 1 tab PO BID PRN HYDROmorphone [Dilaudid] 0.25 mg IVPUSH Q2H PRN LORazepam [Ativan] 0.25 mg IV Q6H PRN Ondansetron [Zofran] 4 mg IV Q6H PRN Polyethylene Glycol 3350 [MiraLAX] 17 gm PO DAILY PRN Promethazine [Phenergan] 6.25 mg Sodium Chloride 0.9% [Normal Saline] 50 ml IV Q6H Temazepam [Restoril] 7.5 mg PO BEDTIME PRN 11/02/17 22:43 RT Aerosol Therapy [RC] ASDIRECTED 11/02/17 22:44 Consult to Case Management [CONS] Routine Consult to Segment Assembler [CONS] Routine Consult to Spiritual Care [CONS] Routine OT Evaluation and Treatment [CONS] Routine PT Evaluation and Treatment [CONS] Routine Respiratory Care Assess and Treatment [CONS] Routine 11/02/17 22:46 LORazepam [Ativan] 2 mg IVPUSH Q4H PRN Metoprolol Tartrate [Lopressor] 5 mg IVPUSH Q4H PRN hydrALAZINE [Apresoline] 10 mg IVPUSH Q4H PRN 11/02/17 23:00 Magnesium Rep Pharmacy to Dose [Pharmacy to Dose - Magnesium Replacement] 1 dose .XX ASDIRECTED Potassium Rep Pharmacy to Dose [Pharmacy to Dose - Potassium Replacement] 1 dose .XX ASDIRECTED 11/02/17 23:58 Incentive Spirometry [RT Incentive Spirometry] [RC] ASDIRECTED 11/02/17 23:59 Dextromethorphan/guaiFENesin [Robitussin DM] 5 ml PO Q4H PRN 11/03/17 02:58 Code Status [Resuscitation Status] Routine 11/03/17 06:00 Trospium [Sanctura] 20 mg PO BIDAC 11/03/17 09:00 Azithromycin [Zithromax] 500 mg Sodium Chloride 0.9% [Normal Saline] 250 ml IV Q24H Clopidogrel [Plavix] 75 mg PO DAILY Saccharomyces Boulardii [Florastor] 250 mg PO BID cefTRIAXone [Rocephin] 1 gm Sodium Chloride 0.9% [Normal Saline] 100 ml IV Q24H 11/03/17 21:00 Donepezil [Aricept] 10 mg PO BEDTIME Famotidine [Pepcid] 20 mg PO BEDTIME 11/03/17 Breakfast Regular Diet [DIET] 11/04/17 05:11 BASIC METABOLIC PANEL,BMP [CHEM] AM C-REACTIVE PROTEIN [CHEM] AM CBC WITH AUTO DIFF [HEME] AM MAGNESIUM [CHEM] AM 11/05/17 05:11 BASIC METABOLIC PANEL,BMP [CHEM] AM C-REACTIVE PROTEIN [CHEM] AM CBC WITH AUTO DIFF [HEME] AM MAGNESIUM [CHEM] AM 11/06/17 05:11 BASIC METABOLIC PANEL,BMP [CHEM] AM C-REACTIVE PROTEIN [CHEM] AM CBC WITH AUTO DIFF [HEME] AM MAGNESIUM [CHEM] AM 11/07/17 05:11 BASIC METABOLIC PANEL,BMP [CHEM] AM C-REACTIVE PROTEIN [CHEM] AM CBC WITH AUTO DIFF [HEME] AM MAGNESIUM [CHEM] AM - Plan Plan:: Assessment/Plan: Acute: Right Sided PNA - Likely Aspiration - Risk factors: Dementia and GERD - CXR shows right middle lobe infiltrate; repeat in AM - Received IV 750 mg Levaquin in ED x1 - Continue IV Azithromycin/Rocephin daily - Influenza screening and Mycplasma-both negative - Sputum Cx and Strep pneumoniae Ag tests- pending - IS as directed - H2B for preventive reflux - PRN Decongestant/Expectorant UTI - UA is suggestive of UTI - Cx is pos GNR - Risk factor: on Vesicare ---> urinary retention - Received Levaquin in ED - She will be on Rocephin in AM Leukocytosis - 2/2 Above - WBC 12.74--> 10.91 - CRP is 5.1--> 7.9 - Treatment as above Chronic: ? CAD on Plavix Dementia GERD/Pyrosis OAB on Vesicare Plan: She is clinically stable Continue current treatment Routine AM Labs DVT/GI PPx: SCDs and H2B Continue PT/OT consult SW/CM for d/c planning Encourage to use IS as tolerated Additional orders as above Code status: CPR only
[2017-11-03] MEDS: Donepezil 10 MG Tab PO SCH (20:35)
[2017-11-03] MEDS: Famotidine 20 MG Tab PO SCH (20:36)
--- NOTE | 2017-11-04 07:13 | PCM.PN ---
- General Info Date of Service: 11/04/17 Admission Dx/Problem (Free Text): UTI and PNA Subjective Update: Follow Up Functional Status: Reports: Pain Controlled, Tolerating Diet, Ambulating, Urinating. Denies: New Symptoms - Review of Systems General: Denies: Fever, Weakness, Fatigue, Malaise HEENT: Reports: No Symptoms Pulmonary: Denies: Shortness of Breath Cardiovascular: Denies: Chest Pain, Palpitations, Dyspnea on Exertion Gastrointestinal: Reports: Flatus. Denies: Abdominal Pain, Constipation, Diarrhea, Difficulty Swallowing, Nausea, Vomiting Genitourinary: Reports: No Symptoms Musculoskeletal: Reports: No Symptoms Skin: Denies: Cyanosis, Mottled, Pallor, Diaphoresis Neurological: Denies: Confusion (baseline short term confusion), Difficulty Walking, Weakness, Gait Disturbance Psychiatric: Denies: Depression, Anxiety, Agitation, Hallucinations Systems Review Comment:: No overnight or acute issues. She is doing relatively well. She feels good and reports no new complaints. - Patient Data Vitals - Most Recent: Last Vital Signs Temp 36.8 C 11/04/17 03:17 Pulse 76 11/04/17 03:17 Resp 17 11/04/17 03:17 BP 122/68 11/04/17 03:17 Pulse Ox 96 11/04/17 03:17 Weight - Most Recent: 90.764 kg I&O - Last 24 Hours: Intake & Output 11/03/17 11/04/17 11/04/17 22:59 06:59 14:59 Intake Total 1800 200 Output Total 300 Balance 1500 200 Lab Results Last 24 Hours: Laboratory Results - last 24 hr 11/03/17 11/03/17 Range/Units 05:50 06:00 Sodium 140 (136-145) mEq/L Potassium 4.3 (3.5-5.1) mEq/L Chloride 106 (98-107) mEq/L Carbon Dioxide 26 (21-32) mEq/L Anion Gap 12.3 (5-15) BUN 15 (7-18) mg/dL Creatinine 1.2 H (0.55-1.02) mg/dL Est Cr Clr Drug Dosing 35.20 mL/min Estimated GFR (MDRD) 43 (>60) mL/min BUN/Creatinine Ratio 12.5 L (14-18) Glucose 102 (83-115) mg/dL Calcium 8.1 L (8.5-10.1) mg/dL Magnesium 1.9 (1.8-2.4) mg/dl C-Reactive Protein 7.9 H* (<1.0) mg/dL MRSA (PCR) Negative Med Orders - Current: Current Medications Acetaminophen (Tylenol) 650 mg PO Q4H PRN PRN Reason: Pain (Mild 1-3)/fever Last Admin: 11/02/17 23:28 Dose: 650 mg Hydrocodone Bitart/Acetaminophen ([place] 325-5 Mg) 1 tab PO Q4H PRN PRN Reason: Pain (moderate 4-6) Albuterol/Ipratropium (Duoneb 3.0-0.5 Mg/3 Ml) 3 ml NEB Q4H PRN PRN Reason: Shortness Of Breath/wheezing Bisacodyl (Dulcolax) 5 mg PO DAILY PRN PRN Reason: Constipation Clopidogrel Bisulfate (Plavix) 75 mg PO DAILY [facility] Last Admin: 11/03/17 10:01 Dose: 75 mg Docusate Sodium (Colace) 100 mg PO BID PRN PRN Reason: Constipation Last Admin: 11/04/17 05:56 Dose: 100 mg Donepezil HCl (Aricept) 10 mg PO BEDTIME [facility] Last Admin: 11/03/17 20:35 Dose: 10 mg Famotidine (Pepcid) 20 mg PO BEDTIME [facility] Last Admin: 11/03/17 20:36 Dose: 20 mg Guaifenesin/Phenylephrine HCl (Robitussin Dm) 5 ml PO Q4H PRN PRN Reason: Cough Hydralazine HCl (Apresoline) 10 mg IVPUSH Q4H PRN PRN Reason: Hypertension Hydromorphone HCl (Dilaudid) 0.25 mg IVPUSH Q2H PRN PRN Reason: Pain (severe 7-10) Promethazine HCl 6.25 mg/ (Sodium Chloride) 50.25 mls @ 100 mls/hr IV Q6H PRN PRN Reason: Nausea/Vomiting Azithromycin 500 mg/ Sodium (Chloride) 250 mls @ 250 mls/hr IV Q24H [facility] Last Admin: 11/03/17 10:05 Dose: 250 mls/hr Ceftriaxone Sodium 1 gm/ (Sodium Chloride) 100 mls @ 200 mls/hr IV Q24H [facility] Last Admin: 11/03/17 10:04 Dose: 200 mls/hr Lorazepam (Ativan) 0.25 mg IV Q6H PRN PRN Reason: Anxiety Lorazepam (Ativan) 2 mg IVPUSH Q4H PRN PRN Reason: Seizures Magnesium Sulfate (Pharmacy To Dose - Magnesium Replacement) 1 dose .XX ASDIRECTED [facility] Metoprolol Tartrate (Lopressor) 5 mg IVPUSH Q4H PRN PRN Reason: Tachycardia Ondansetron HCl (Zofran) 4 mg IV Q6H PRN PRN Reason: Nausea/Vomiting Polyethylene Glycol (Miralax) 17 gm PO DAILY PRN PRN Reason: Constipation Potassium Chloride (Pharmacy To Dose - Potassium Replacement) 1 dose .XX ASDIRECTED [facility] Saccharomyces Boulardii (Florastor) 250 mg PO BID [facility] Last Admin: 11/03/17 20:35 Dose: 250 mg Senna/Docusate Sodium (Senna Plus) 1 tab PO BID PRN PRN Reason: Constipation Sodium Chloride (Saline Flush) 10 ml FLUSH ASDIRECTED PRN PRN Reason: Keep Vein Open Last Admin: 11/02/17 19:43 Dose: 10 ml Temazepam (Restoril) 7.5 mg PO BEDTIME PRN PRN Reason: Sleep Trospium (Sanctura) 20 mg PO BIDAC [facility] Last Admin: 11/03/17 17:00 Dose: Not Given Discontinued Medications Sodium Chloride (Normal Saline) 1,000 mls @ 125 mls/hr IV ONETIME ONE Stop: 11/03/17 03:57 Last Admin: 11/02/17 20:21 Dose: 125 mls/hr Levofloxacin/Dextrose 750 mg/ (Premix) 150 mls @ 100 mls/hr IV ONETIME ONE Stop: 11/02/17 21:29 Last Admin: 11/02/17 20:21 Dose: 100 mls/hr - Exam General: Alert, Oriented, Cooperative, No Acute Distress HEENT: Pupils Equal, Pupils Reactive, EOMI, Mucous Membr. Moist/[place] Neck: Supple, Trachea Midline, No JVD Lungs: Normal Respiratory Effort Cardiovascular: Regular Rate, Regular Rhythm GI/Abdominal Exam: Normal Bowel Sounds, Soft, Non-Tender, No Organomegaly, No Distention, No Abnormal Bruit, No Mass (Female) Exam: Deferred Back Exam: Normal Inspection, Decreased Range of Motion Extremities: Normal Inspection, Normal Range of Motion, Non-Tender, No Pedal Edema, Normal Capillary Refill Peripheral Pulses: 2+: Dorsalis Pedis (L), Dorsalis Pedis (R) Skin: Warm, Dry, Intact Neurological: No New Focal Deficit Psy/Mental Status: Alert, Normal Affect, Normal Mood - Problem List Review Problem List Initiated/Reviewed/Updated: Yes - My Orders Last 24 Hours: My Active Orders 11/03/17 09:00 Azithromycin [Zithromax] 500 mg Sodium Chloride 0.9% [Normal Saline] 250 ml IV Q24H Clopidogrel [Plavix] 75 mg PO DAILY Saccharomyces Boulardii [Florastor] 250 mg PO BID cefTRIAXone [Rocephin] 1 gm Sodium Chloride 0.9% [Normal Saline] 100 ml IV Q24H 11/03/17 19:05 CULTURE SPUTUM + SMEAR [RM] Routine 11/03/17 21:00 Donepezil [Aricept] 10 mg PO BEDTIME Famotidine [Pepcid] 20 mg PO BEDTIME 11/03/17 Breakfast Regular Diet [DIET] 11/04/17 05:11 BASIC METABOLIC PANEL,BMP [CHEM] AM C-REACTIVE PROTEIN [CHEM] AM CBC WITH AUTO DIFF [HEME] AM MAGNESIUM [CHEM] AM 11/04/17 07:00 Chest 1V Frontal [CR] Routine 11/05/17 05:11 BASIC METABOLIC PANEL,BMP [CHEM] AM C-REACTIVE PROTEIN [CHEM] AM CBC WITH AUTO DIFF [HEME] AM MAGNESIUM [CHEM] AM 11/06/17 05:11 BASIC METABOLIC PANEL,BMP [CHEM] AM C-REACTIVE PROTEIN [CHEM] AM CBC WITH AUTO DIFF [HEME] AM MAGNESIUM [CHEM] AM 11/07/17 05:11 BASIC METABOLIC PANEL,BMP [CHEM] AM C-REACTIVE PROTEIN [CHEM] AM CBC WITH AUTO DIFF [HEME] AM MAGNESIUM [CHEM] AM - Plan Plan:: Assessment/Plan: Acute: Right Sided PNA, Improving - Likely Aspiration - Risk factors: Dementia and GERD - CXR shows right middle lobe infiltrate; repeat imaging this morning shows some improvement - Received IV 750 mg Levaquin in ED x1 - Continue IV Azithromycin/Rocephin daily - Influenza screening,Strep pneumoniae Ag tests and Mycplasma-all negative - Sputum Cx - pending - IS as directed - H2B for preventive reflux - PRN Decongestant/Expectorant UTI - UA is suggestive of UTI - Cx is pos E. coli sensitive to Rocephin and Levaquin - Risk factor: on Vesicare ---> urinary retention - Received Levaquin in ED - Currently on Rocephin IV daily Resolved: Leukocytosis - 2/2 Above - WBC 12.74--> 10.91--> 7.45 - CRP is 5.1--> 7.9 - Treatment as above Chronic: ? CAD on Plavix Dementia GERD/Pyrosis OAB on Vesicare Plan: She remains clinically stable Continue current treatment Routine AM Labs DVT/GI PPx: SCDs and H2B Continue PT/OT consult SW/CM for d/c planning Encourage to use IS as tolerated Additional orders as above Code status: CPR only Possible d/c in AM
--- NOTE | 2017-11-04 08:42 | CR ---
Chest: Frontal view of the chest was obtained. Comparison: Prior chest x-ray of 11/02/17. Increased density is noted within the right mid to lower chest. Left lung is clear. Heart size is normal. Tortuous thoracic aorta is seen. Degenerative spurring is noted within the spine. Impression: 1. Increased density within the right chest. Minimal improvement is felt to be present from previous study. 2. Other stable findings. Diagnostic code #3
[2017-11-04] MEDS: Saccharomyces Boulardii (Probiotic) 250 MG Cap PO SCH ×2 (09:57→21:05)
[2017-11-04] MEDS: Clopidogrel 75 MG Tab PO SCH (09:58)
[2017-11-04] MEDS: cefTRIAXone 1 GM in Sodium Chloride 0.9% 100 ML IV SCH (09:59)
[2017-11-04] MEDS: Azithromycin 500 MG in Sodium Chloride 0.9% 250 ML IV SCH (11:54)
[2017-11-04] MEDS: Trospium 20 MG Tab PO SCH ×2 (16:42→16:54)
[2017-11-04] MEDS: Donepezil 10 MG Tab PO SCH (21:05)
[2017-11-04] MEDS: Famotidine 20 MG Tab PO SCH (21:05)
[2017-11-05] MEDS: Trospium 20 MG Tab PO SCH (06:32)
--- NOTE | 2017-11-05 07:42 | PCM.PN ---
- General Info Date of Service: 11/05/17 Admission Dx/Problem (Free Text): UTI and PNA Subjective Update: Follow Up Functional Status: Reports: Pain Controlled, Tolerating Diet, Ambulating, Urinating - Patient Data Vitals - Most Recent: Last Vital Signs Temp 36.8 C 11/05/17 03:02 Pulse 60 11/05/17 03:02 Resp 18 11/05/17 03:02 BP 130/77 11/05/17 03:02 Pulse Ox 95 11/05/17 03:02 Weight - Most Recent: 91.127 kg I&O - Last 24 Hours: Intake & Output 11/04/17 11/05/17 11/05/17 22:59 06:59 14:59 Intake Total 1250 600 Balance 1250 600 Lab Results Last 24 Hours: Laboratory Results - last 24 hr 11/04/17 11/04/17 11/05/17 Range/Units 06:41 06:41 06:25 WBC 6.73 (3.98-10.04) K/mm3 RBC 3.83 L (3.98-5.22) M/mm3 Hgb 11.5 (11.2-15.7) gm/L Hct 36.2 (34.1-44.9) % MCV 94.5 (79.4-94.8) fl MCH 30.0 (25.6-32.2) pg MCHC 31.8 L (32.2-35.5) g/dl RDW Std Deviation 49.9 H (36.4-46.3) fL Plt Count 308 (182-369) K/mm3 MPV 11.4 (9.4-12.3) fl Neut % (Auto) 47.2 (34.0-71.1) % Lymph % (Auto) 25.3 (19.3-51.7) % [place] % (Auto) 17.2 H (4.7-12.5) % Eos % (Auto) 9.5 H (0.7-5.8) Baso % (Auto) 0.4 (0.1-1.2) % Neut # (Auto) 3.17 (1.56-6.13) K/mm3 Lymph # (Auto) 1.70 (1.18-3.74) K/mm3 [place] # (Auto) 1.16 H (0.24-0.36) K/mm3 Eos # (Auto) 0.64 H (0.04-0.36) K/mm3 Baso # (Auto) 0.03 (0.01-0.08) K/mm3 Manual Slide Review Normal smear Normal smear Sodium 139 (136-145) mEq/L Potassium 3.9 (3.5-5.1) mEq/L Chloride 106 (98-107) mEq/L Carbon Dioxide 23 (21-32) mEq/L Anion Gap 13.9 (5-15) BUN 16 (7-18) mg/dL Creatinine 1.2 H (0.55-1.02) mg/dL Est Cr Clr Drug Dosing 35.20 mL/min Estimated GFR (MDRD) 43 (>60) mL/min BUN/Creatinine Ratio 13.3 L (14-18) Glucose 88 (83-115) mg/dL Calcium 8.4 L (8.5-10.1) mg/dL Magnesium 2.0 (1.8-2.4) mg/dl C-Reactive Protein 9.9 H* (<1.0) mg/dL 11/05/17 Range/Units 06:25 WBC (3.98-10.04) K/mm3 RBC (3.98-5.22) M/mm3 Hgb (11.2-15.7) gm/L Hct (34.1-44.9) % MCV (79.4-94.8) fl MCH (25.6-32.2) pg MCHC (32.2-35.5) g/dl RDW Std Deviation (36.4-46.3) fL Plt Count (182-369) K/mm3 MPV (9.4-12.3) fl Neut % (Auto) (34.0-71.1) % Lymph % (Auto) (19.3-51.7) % [place] % (Auto) (4.7-12.5) % Eos % (Auto) (0.7-5.8) Baso % (Auto) (0.1-1.2) % Neut # (Auto) (1.56-6.13) K/mm3 Lymph # (Auto) (1.18-3.74) K/mm3 [place] # (Auto) (0.24-0.36) K/mm3 Eos # (Auto) (0.04-0.36) K/mm3 Baso # (Auto) (0.01-0.08) K/mm3 Manual Slide Review Sodium 143 (136-145) mEq/L Potassium 3.8 (3.5-5.1) mEq/L Chloride 109 H (98-107) mEq/L Carbon Dioxide 26 (21-32) mEq/L Anion Gap 11.8 (5-15) BUN 18 (7-18) mg/dL Creatinine 1.2 H (0.55-1.02) mg/dL Est Cr Clr Drug Dosing 35.20 mL/min Estimated GFR (MDRD) 43 (>60) mL/min BUN/Creatinine Ratio 15.0 (14-18) Glucose 91 (83-115) mg/dL Calcium 8.4 L (8.5-10.1) mg/dL Magnesium 2.1 (1.8-2.4) mg/dl C-Reactive Protein 5.7 H* (<1.0) mg/dL Med Orders - Current: Current Medications Acetaminophen (Tylenol) 650 mg PO Q4H PRN PRN Reason: Pain (Mild 1-3)/fever Last Admin: 11/02/17 23:28 Dose: 650 mg Hydrocodone Bitart/Acetaminophen ([place] 325-5 Mg) 1 tab PO Q4H PRN PRN Reason: Pain (moderate 4-6) Albuterol/Ipratropium (Duoneb 3.0-0.5 Mg/3 Ml) 3 ml NEB Q4H PRN PRN Reason: Shortness Of Breath/wheezing Bisacodyl (Dulcolax) 5 mg PO DAILY PRN PRN Reason: Constipation Clopidogrel Bisulfate (Plavix) 75 mg PO DAILY [facility] Last Admin: 11/04/17 09:58 Dose: 75 mg Docusate Sodium (Colace) 100 mg PO BID PRN PRN Reason: Constipation Last Admin: 11/04/17 05:56 Dose: 100 mg Donepezil HCl (Aricept) 10 mg PO BEDTIME [facility] Last Admin: 11/04/17 21:05 Dose: 10 mg Famotidine (Pepcid) 20 mg PO BEDTIME [facility] Last Admin: 11/04/17 21:05 Dose: 20 mg Guaifenesin/Phenylephrine HCl (Robitussin Dm) 5 ml PO Q4H PRN PRN Reason: Cough Hydralazine HCl (Apresoline) 10 mg IVPUSH Q4H PRN PRN Reason: Hypertension Hydromorphone HCl (Dilaudid) 0.25 mg IVPUSH Q2H PRN PRN Reason: Pain (severe 7-10) Promethazine HCl 6.25 mg/ (Sodium Chloride) 50.25 mls @ 100 mls/hr IV Q6H PRN PRN Reason: Nausea/Vomiting Azithromycin 500 mg/ Sodium (Chloride) 250 mls @ 250 mls/hr IV Q24H [facility] Last Admin: 11/04/17 11:54 Dose: 250 mls/hr Ceftriaxone Sodium 1 gm/ (Sodium Chloride) 100 mls @ 200 mls/hr IV Q24H [facility] Last Admin: 11/04/17 09:59 Dose: 200 mls/hr Lorazepam (Ativan) 0.25 mg IV Q6H PRN PRN Reason: Anxiety Lorazepam (Ativan) 2 mg IVPUSH Q4H PRN PRN Reason: Seizures Magnesium Sulfate (Pharmacy To Dose - Magnesium Replacement) 1 dose .XX ASDIRECTED [facility] Metoprolol Tartrate (Lopressor) 5 mg IVPUSH Q4H PRN PRN Reason: Tachycardia Ondansetron HCl (Zofran) 4 mg IV Q6H PRN PRN Reason: Nausea/Vomiting Polyethylene Glycol (Miralax) 17 gm PO DAILY PRN PRN Reason: Constipation Potassium Chloride (Pharmacy To Dose - Potassium Replacement) 1 dose .XX ASDIRECTED [facility] Saccharomyces Boulardii (Florastor) 250 mg PO BID [facility] Last Admin: 11/04/17 21:05 Dose: 250 mg Senna/Docusate Sodium (Senna Plus) 1 tab PO BID PRN PRN Reason: Constipation Sodium Chloride (Saline Flush) 10 ml FLUSH ASDIRECTED PRN PRN Reason: Keep Vein Open Last Admin: 11/02/17 19:43 Dose: 10 ml Temazepam (Restoril) 7.5 mg PO BEDTIME PRN PRN Reason: Sleep Trospium (Sanctura) 20 mg PO BIDAC [facility] Last Admin: 11/05/17 06:32 Dose: 20 mg Discontinued Medications Sodium Chloride (Normal Saline) 1,000 mls @ 125 mls/hr IV ONETIME ONE Stop: 11/03/17 03:57 Last Admin: 11/02/17 20:21 Dose: 125 mls/hr Levofloxacin/Dextrose 750 mg/ (Premix) 150 mls @ 100 mls/hr IV ONETIME ONE Stop: 11/02/17 21:29 Last Admin: 11/02/17 20:21 Dose: 100 mls/hr - My Orders Last 24 Hours: My Active Orders 11/06/17 05:11 BASIC METABOLIC PANEL,BMP [CHEM] AM C-REACTIVE PROTEIN [CHEM] AM CBC WITH AUTO DIFF [HEME] AM MAGNESIUM [CHEM] AM 11/07/17 05:11 BASIC METABOLIC PANEL,BMP [CHEM] AM C-REACTIVE PROTEIN [CHEM] AM CBC WITH AUTO DIFF [HEME] AM MAGNESIUM [CHEM] AM - Plan Plan:: Assessment/Plan: Acute: Right Sided PNA - Likely Aspiration - Risk factors: Dementia and GERD - CXR shows right middle lobe infiltrate; repeat in AM - Received IV 750 mg Levaquin in ED x1 - Continue IV Azithromycin/Rocephin daily - Influenza screening and Mycplasma-both negative - Sputum Cx and Strep pneumoniae Ag tests- pending - IS as directed - H2B for preventive reflux - PRN Decongestant/Expectorant UTI - UA is suggestive of UTI - Cx is pos GNR - Risk factor: on Vesicare ---> urinary retention - Received Levaquin in ED - She will be on Rocephin in AM Leukocytosis - 2/2 Above - WBC 12.74--> 10.91 - CRP is 5.1--> 7.9 - Treatment as above Chronic: ? CAD on Plavix Dementia GERD/Pyrosis OAB on Vesicare Plan: She is clinically stable Continue current treatment Routine AM Labs DVT/GI PPx: SCDs and H2B Continue PT/OT consult SW/CM for d/c planning Encourage to use IS as tolerated Additional orders as above Code status: CPR only
[2017-11-05] MEDS: Clopidogrel 75 MG Tab PO SCH (08:44)
[2017-11-05] MEDS: cefTRIAXone 1 GM in Sodium Chloride 0.9% 100 ML IV SCH (08:44)
[2017-11-05] MEDS: Saccharomyces Boulardii (Probiotic) 250 MG Cap PO SCH (08:44)
[2017-11-05] MEDS: Azithromycin 500 MG in Sodium Chloride 0.9% 250 ML IV SCH (10:17)
--- NOTE | 2017-11-05 11:16 | PCM.DCSUM1 ---
Discharge Summary - Hospital Course Brief History: This is an 82 yo elderly white female with past medical hx/o ? CAD on Plavix, Early Dementia, GERD/Pyrosis, and OAB on Vesicare who comes in to ED for evaluation of subjective fever of 101.5 associated with dry non- productive cough, generalized weakness and increased confusion. She denies any chest pain or shortness of breath. No report of GI issues. - Discharge Data Discharge Date: 11/05/17 Discharge Disposition: Home, Self-Care 01 Condition: Good - Discharge Diagnosis/Problem(s) (1) Pneumonia SNOMED Code(s): 621616310 ICD Code: J18.9 - PNEUMONIA, UNSPECIFIED ORGANISM Status: Acute (2) UTI, Urinary tract infectious disease SNOMED Code(s): 12877978 ICD Code: N39.0 - URINARY TRACT INFECTION, SITE NOT SPECIFIED Status: Acute (3) Leukocytosis, unspecified SNOMED Code(s): 222628403 ICD Code: D72.829 - ELEVATED WHITE BLOOD CELL COUNT, UNSPECIFIED Status: Resolved Qualifiers: Leukocytosis type: unspecified Qualified Code(s): D72.829 - Elevated white blood cell count, unspecified - Patient Summary/Data Operative Procedure(s) Performed: None Complications: None Consults: Consultations 11/02/17 22:44 Consult to Case Management [CONS] Routine Consult to [employer] [CONS] Routine Consult to Spiritual Care [CONS] Routine OT Evaluation and Treatment [CONS] Routine PT Evaluation and Treatment [CONS] Routine Respiratory Care Assess and Treatment [CONS] Routine Labs Pending at D/C: None Recommended Follow-up Testing/Procedures: None Planned Operative Procedure(s) after DC: None Hospital Course: Patient was primarily admitted for medical treatment of aspiration pneumonia and urinary tract infection. She was found to have right-sided infiltrate on chest x-ray which were felt due to aspiration. She was also found positive on UA for urinary tract infection. All her infectious workup to include influenza screening, Streptococcus pneumonia antigen, mycoplasma pneumoniae antigen, MRSA screening, and blood cultures were all negative for any organismal growth. However she grew Escherichia coli on her urine culture. Patient received supportive care and medical treatment for both infections and she immediately improved on this regimen. Her hospital course was uncomplicated and the rest of her chronic medical illness remained stable on this admission. Patient was informed regarding risk factors related to aspiration pneumonia and increased risk of urinary tract infection due to vesicare use. Patient was stable upon discharge. She was provided oral Levaquin to take for additional course to complete her treatment along with probiotic to minimize the risk of C. difficile infection. The patient was advised to come back or seek immediate care should her symptoms persist or get worse. She was further advised to follow-up with her primary care in 1 week. The patient along with her daughter expressed understanding and in agreement with the plans as discussed above. All questions were answered. - Patient Instructions Diet: Usual Diet as Tolerated Activity: As Tolerated Driving: Do Not Drive Showering/Bathing: May Shower Notify Provider of: Fever, Increased Pain, Nausea and/or Vomiting Other/Special Instructions: - Please take all new medications as directed. - Continue using Iincentive Spirometry every 2 hours until completion of antibiotic. - Resume all home medications. - Call or follow up with your family doctor for any questions or concerns after discharge. - Follow up in 1 week with your family doctor - Discharge Plan Prescriptions/Med Rec: Levofloxacin [Levaquin] 750 mg PO Q48H #4 tab Saccharomyces Boulardii [Florastor] 250 mg PO Q48H #4 cap Home Medications: Home Meds Clopidogrel [Plavix] 75 mg PO DAILY 11/02/17 [History] Donepezil [Aricept] 10 mg PO BEDTIME 11/02/17 [History] Ranitidine HCl [Zantac] 150 mg PO DAILY 11/02/17 [History] Solifenacin Succinate [Vesicare] 10 mg PO DAILY 11/02/17 [History] Levofloxacin [Levaquin] 750 mg PO Q48H #4 tab 11/05/17 [Rx] Saccharomyces Boulardii [Florastor] 250 mg PO Q48H #4 cap 11/05/17 [Rx] Referrals: Gucci Mir MD [Primary Care Provider] - (Please call and schedule a follow up with Dr. Mir in 7-10 days.) - Discharge Summary/Plan Comment DC Time >30 min.: Yes (45 mins) Discharge Summary/Plan Comment: Discharge to Home - General Info Date of Service: 11/05/17 Admission Dx/Problem (Free Text: UTI and PNA Subjective Update: Follow Up Functional Status: Reports: Pain Controlled, Tolerating Diet, Ambulating, Urinating - Review of Systems General: Denies: Fever, Weakness, Fatigue, Malaise, Chills HEENT: Reports: No Symptoms Pulmonary: Denies: Shortness of Breath Cardiovascular: Denies: Chest Pain, Palpitations, Dyspnea on Exertion, Lightheadedness Gastrointestinal: Denies: Abdominal Pain, Nausea, Vomiting Genitourinary: Reports: No Symptoms Musculoskeletal: Reports: No Symptoms Skin: Denies: Cyanosis, Mottled, Pallor, Diaphoresis, Rash Neurological: Reports: Confusion (baseline mild confusion). Denies: Pre- Existing Deficit, Seizure, Difficulty Walking, Weakness, Gait Disturbance Psychiatric: Denies: Depression, Mood Lability, Anxiety, Agitation, Hallucinations, Homicidal Ideation Systems Review Comment: No significant overnight or acute issues. - Patient Data Vitals - Most Recent: Last Vital Signs Temp 36.9 C 11/05/17 07:29 Pulse 68 11/05/17 07:29 Resp 20 11/05/17 07:29 BP 137/98 H 11/05/17 07:29 Pulse Ox 98 11/05/17 07:29 Weight - Most Recent: 91.127 kg I&O - Last 24 hours: Intake & Output 11/04/17 11/05/17 11/05/17 22:59 06:59 14:59 Intake Total 1250 600 540 Balance 1250 600 540 Lab Results - Last 24 hrs: Laboratory Results - last 24 hr 11/05/17 11/05/17 Range/Units 06:25 06:25 WBC 6.73 (3.98-10.04) K/mm3 RBC 3.83 L (3.98-5.22) M/mm3 Hgb 11.5 (11.2-15.7) gm/L Hct 36.2 (34.1-44.9) % MCV 94.5 (79.4-94.8) fl MCH 30.0 (25.6-32.2) pg MCHC 31.8 L (32.2-35.5) g/dl RDW Std Deviation 49.9 H (36.4-46.3) fL Plt Count 308 (182-369) K/mm3 MPV 11.4 (9.4-12.3) fl Neut % (Auto) 47.2 (34.0-71.1) % Lymph % (Auto) 25.3 (19.3-51.7) % [place] % (Auto) 17.2 H (4.7-12.5) % Eos % (Auto) 9.5 H (0.7-5.8) Baso % (Auto) 0.4 (0.1-1.2) % Neut # (Auto) 3.17 (1.56-6.13) K/mm3 Lymph # (Auto) 1.70 (1.18-3.74) K/mm3 [place] # (Auto) 1.16 H (0.24-0.36) K/mm3 Eos # (Auto) 0.64 H (0.04-0.36) K/mm3 Baso # (Auto) 0.03 (0.01-0.08) K/mm3 Manual Slide Review Normal smear Sodium 143 (136-145) mEq/L Potassium 3.8 (3.5-5.1) mEq/L Chloride 109 H (98-107) mEq/L Carbon Dioxide 26 (21-32) mEq/L Anion Gap 11.8 (5-15) BUN 18 (7-18) mg/dL Creatinine 1.2 H (0.55-1.02) mg/dL Est Cr Clr Drug Dosing 35.20 mL/min Estimated GFR (MDRD) 43 (>60) mL/min BUN/Creatinine Ratio 15.0 (14-18) Glucose 91 (83-115) mg/dL Calcium 8.4 L (8.5-10.1) mg/dL Magnesium 2.1 (1.8-2.4) mg/dl C-Reactive Protein 5.7 H* (<1.0) mg/dL Med Orders - Current: Current Medications Acetaminophen (Tylenol) 650 mg PO Q4H PRN PRN Reason: Pain (Mild 1-3)/fever Last Admin: 11/02/17 23:28 Dose: 650 mg Hydrocodone Bitart/Acetaminophen ([place] 325-5 Mg) 1 tab PO Q4H PRN PRN Reason: Pain (moderate 4-6) Albuterol/Ipratropium (Duoneb 3.0-0.5 Mg/3 Ml) 3 ml NEB Q4H PRN PRN Reason: Shortness Of Breath/wheezing Bisacodyl (Dulcolax) 5 mg PO DAILY PRN PRN Reason: Constipation Clopidogrel Bisulfate (Plavix) 75 mg PO DAILY [facility] Last Admin: 11/05/17 08:44 Dose: 75 mg Docusate Sodium (Colace) 100 mg PO BID PRN PRN Reason: Constipation Last Admin: 11/04/17 05:56 Dose: 100 mg Donepezil HCl (Aricept) 10 mg PO BEDTIME [facility] Last Admin: 11/04/17 21:05 Dose: 10 mg Famotidine (Pepcid) 20 mg PO BEDTIME [facility] Last Admin: 11/04/17 21:05 Dose: 20 mg Guaifenesin/Phenylephrine HCl (Robitussin Dm) 5 ml PO Q4H PRN PRN Reason: Cough Hydralazine HCl (Apresoline) 10 mg IVPUSH Q4H PRN PRN Reason: Hypertension Hydromorphone HCl (Dilaudid) 0.25 mg IVPUSH Q2H PRN PRN Reason: Pain (severe 7-10) Promethazine HCl 6.25 mg/ (Sodium Chloride) 50.25 mls @ 100 mls/hr IV Q6H PRN PRN Reason: Nausea/Vomiting Azithromycin 500 mg/ Sodium (Chloride) 250 mls @ 250 mls/hr IV Q24H [facility] Last Admin: 11/05/17 10:17 Dose: 250 mls/hr Ceftriaxone Sodium 1 gm/ (Sodium Chloride) 100 mls @ 200 mls/hr IV Q24H [facility] Last Admin: 11/05/17 08:44 Dose: 200 mls/hr Lorazepam (Ativan) 0.25 mg IV Q6H PRN PRN Reason: Anxiety Lorazepam (Ativan) 2 mg IVPUSH Q4H PRN PRN Reason: Seizures Magnesium Sulfate (Pharmacy To Dose - Magnesium Replacement) 1 dose .XX ASDIRECTED [facility] Metoprolol Tartrate (Lopressor) 5 mg IVPUSH Q4H PRN PRN Reason: Tachycardia Ondansetron HCl (Zofran) 4 mg IV Q6H PRN PRN Reason: Nausea/Vomiting Polyethylene Glycol (Miralax) 17 gm PO DAILY PRN PRN Reason: Constipation Potassium Chloride (Pharmacy To Dose - Potassium Replacement) 1 dose .XX ASDIRECTED [facility] Saccharomyces Boulardii (Florastor) 250 mg PO BID [facility] Last Admin: 11/05/17 08:44 Dose: 250 mg Senna/Docusate Sodium (Senna Plus) 1 tab PO BID PRN PRN Reason: Constipation Sodium Chloride (Saline Flush) 10 ml FLUSH ASDIRECTED PRN PRN Reason: Keep Vein Open Last Admin: 11/02/17 19:43 Dose: 10 ml Temazepam (Restoril) 7.5 mg PO BEDTIME PRN PRN Reason: Sleep Trospium (Sanctura) 20 mg PO BIDAC [facility] Last Admin: 11/05/17 06:32 Dose: 20 mg Discontinued Medications Sodium Chloride (Normal Saline) 1,000 mls @ 125 mls/hr IV ONETIME ONE Stop: 11/03/17 03:57 Last Admin: 11/02/17 20:21 Dose: 125 mls/hr Levofloxacin/Dextrose 750 mg/ (Premix) 150 mls @ 100 mls/hr IV ONETIME ONE Stop: 11/02/17 21:29 Last Admin: 11/02/17 20:21 Dose: 100 mls/hr - Exam General: Reports: Alert, Cooperative, No Acute Distress HEENT: Reports: Pupils Equal, Pupils Reactive, EOMI, Mucous Membr. Moist/[place] Neck: Reports: Supple, Trachea Midline, No JVD, No Thyromegaly Lungs: Reports: Clear to Auscultation, Normal Respiratory Effort, Decreased Breath Sounds (diminished at the bases) Cardiovascular: Reports: Regular Rate, Regular Rhythm GI/Abdominal Exam: Normal Bowel Sounds, Soft, Non-Tender, No Organomegaly, No Distention, No Abnormal Bruit, No Mass (Female) Exam: Deferred Rectal (Female) Exam: Deferred Back Exam: Reports: Normal Inspection, Decreased Range of Motion Extremities: Normal Inspection, Normal Range of Motion, Non-Tender, No Pedal Edema, Normal Capillary Refill Skin: Reports: Warm, Dry, Intact Neurological: Reports: No New Focal Deficit Psy/Mental Status: Reports: Alert, Normal Affect, Normal Mood *Q Meaningful Use (DIS) - VTE *Q VTE Criteria *Q: - Stroke *Q Stroke Criteria *Q: - AMI *Q AMI Criteria *Q:
== END 2017-11-05 11:45 | disposition home or self-care (01) | DRG 178 ==
LOC: JD.ED 18:11 → JD.MS 22:31
PROVIDERS: ADMIT Internal Medicine; ATTEND Internal Medicine
DX: J69.0 Pneumonitis due to inhalation of food and vomit (principal); J18.9 Pneumonia, unspecified organism; R09.02 Hypoxemia; N39.0 Urinary tract infection, site not specified; F03.90 Unspecified dementia, unspecified severity, without behavioral disturbance, psychotic disturbance, mood disturbance, and anxiety; K21.9 Gastro-esophageal reflux disease without esophagitis; N32.81 Overactive bladder; B96.20 Unspecified Escherichia coli [E. coli] as the cause of diseases classified elsewhere; I25.10 Atherosclerotic heart disease of native coronary artery without angina pectoris; R53.1 Weakness; Z79.02 Long term (current) use of antithrombotics/antiplatelets; Z79.899 Other long term (current) drug therapy
CPT/HCPCS: 36415; 71046; 80053; 81001; 83605; 85025; 86140; 86738; 87040 ×2; 87086; 87088; 87186; 87804 ×2; 87899; 93005; 96365; 96366; 99285; J1956; J7040; J7050; 71045; 71045-26; 80048; 83735; 87641; 94761; 97161-GP; 97165-GO; 99284; A9270-GY; J0456; J0696; J7030

== ENCOUNTER 2022-12-10 09:32 | Inpatient (IN) | payer MEDICARE, OTHER ==
[2022-12-10] MEDS ORDERED: Sodium Chloride 0.9% 10 ML Syringe FLUSH PRN ×2 (10:16→16:21)
[2022-12-10] MEDS ORDERED: Ketorolac 30 MG/ML SDV IVPUSH ONE (10:39)
[2022-12-10] MEDS ORDERED: Acetaminophen 325 MG Tab PO ONE ×2 (10:39→14:25)
[2022-12-10 11:12] LABS: ESTIMATED GFR 39 mL/min (>60)
[2022-12-10 12:31] LABS: CORONAVIRUS COVID-19 NAA NEGATIVE (NEGATIVE)
[2022-12-10] MEDS ORDERED: cefTRIAXone 1 GM in Sodium Chloride 0.9% 100 ML IV ONE ×2 (15:48→22:00)
[2022-12-10] MEDS ORDERED: Ondansetron 4 MG/2 ML SDV IV PRN (16:21)
[2022-12-10] MEDS ORDERED: Docusate Sodium 100 MG Cap PO PRN (16:21)
[2022-12-10] MEDS ORDERED: Ondansetron 4 MG Tab.DIS PO PRN (16:21)
[2022-12-10] MEDS ORDERED: Polyethylene Glycol 3350 Powder 17 GM Packet PO PRN (16:21)
[2022-12-10] MEDS ORDERED: cefTRIAXone 2 GM in Sodium Chloride 0.9% 100 ML IV SCH (16:30)
[2022-12-10] MEDS ORDERED: Heparin Sodium 5,000 Units/ML Vial SUBCUT SCH (16:30)
[2022-12-11] MEDS ORDERED: Sodium Chloride 0.45% 1,000 ML IV SCH (07:30)
[2022-12-11] MEDS ORDERED: Lidocaine 4% 1 each Patch TOP PRN (07:30)
[2022-12-11] MEDS: Acetaminophen 325 MG Tab PO PRN ×2 (08:18→20:48)
[2022-12-11] MEDS: Metoprolol Succinate 50 MG Tab.ER PO SCH (08:18)
[2022-12-11] MEDS: Apixaban 2.5 MG Tab PO SCH ×2 (08:18→20:49)
[2022-12-11] MEDS: Hydroxyurea 500 MG Cap PO SCH (16:26)
[2022-12-11] MEDS: Donepezil 10 MG Tab PO SCH (19:17)
[2022-12-11] MEDS: cefTRIAXone 2 GM in Sodium Chloride 0.9% 100 ML IV SCH (19:17)
[2022-12-11] MEDS: Sertraline 50 MG Tab PO SCH (20:48)
[2022-12-12] MEDS: Acetaminophen 325 MG Tab PO PRN (10:00)
[2022-12-12] MEDS: Apixaban 2.5 MG Tab PO SCH ×2 (10:01→21:58)
[2022-12-12] MEDS: Metoprolol Succinate 50 MG Tab.ER PO SCH (10:01)
[2022-12-12] MEDS: Hydroxyurea 500 MG Cap PO SCH (10:02)
[2022-12-12] MEDS: cefTRIAXone 2 GM in Sodium Chloride 0.9% 100 ML IV SCH (18:01)
[2022-12-12] MEDS: Donepezil 10 MG Tab PO SCH (18:16)
[2022-12-12] MEDS: Sertraline 50 MG Tab PO SCH (21:58)
[2022-12-13] MEDS: Apixaban 2.5 MG Tab PO SCH (08:52)
[2022-12-13] MEDS: Acetaminophen 325 MG Tab PO PRN ×2 (08:52→14:47)
[2022-12-13] MEDS: Metoprolol Succinate 50 MG Tab.ER PO SCH (08:52)
[2022-12-13] MEDS ORDERED: Cefdinir 300 MG Cap PO SCH (21:00)
== END 2022-12-13 14:56 | disposition other institution (70) | DRG 690 ==
LOC: JD.ED 09:32 → JD.MS 16:21
PROVIDERS: ADMIT Hospitalist; ATTEND Hospitalist
DX: N30.00 Acute cystitis without hematuria (principal); N17.9 Acute kidney failure, unspecified; E87.1 Hypo-osmolality and hyponatremia; I48.91 Unspecified atrial fibrillation; F03.B0 Unspecified dementia, moderate, without behavioral disturbance, psychotic disturbance, mood disturbance, and anxiety; B96.20 Unspecified Escherichia coli [E. coli] as the cause of diseases classified elsewhere; E86.0 Dehydration; I12.9 Hypertensive chronic kidney disease with stage 1 through stage 4 chronic kidney disease, or unspecified chronic kidney disease; Z20.822 Contact with and (suspected) exposure to COVID-19; D75.9 Disease of blood and blood-forming organs, unspecified; Z66 Do not resuscitate; N32.81 Overactive bladder; N18.31 Chronic kidney disease, stage 3a; K21.9 Gastro-esophageal reflux disease without esophagitis; Z86.73 Personal history of transient ischemic attack (TIA), and cerebral infarction without residual deficits; Z85.038 Personal history of other malignant neoplasm of large intestine; Z79.899 Other long term (current) drug therapy; Z90.710 Acquired absence of both cervix and uterus; Z90.49 Acquired absence of other specified parts of digestive tract; Z98.890 Other specified postprocedural states
CPT/HCPCS: 0241U; 36415; 72100; 72100-26; 73502-26-LT; 73502-26-RT; 73502-LT; 73502-RT; 80048; 80053; 81001; 85025; 86140; 87086; 87088; 87186; 87641; 94760; 94761; 96365; 96375; 97162-GP; 97166-GO; 97530-GO; 99222; 99232; 99239; 99285-25; A9270-GY; J0696; J1885; J3490; J7030